=== PATIENT | female | born 1985 | race Caucasian/White ===

== ENCOUNTER 2023-02-09 17:14 | Emergency (ER) | payer OTHER, BC, SELFPAY ==
--- NOTE | ~2023-02-09 | XR_ITS ---
EXAMINATION: XR foot LT min 3V DATE: 02/09/2023 17:33 INDICATION: Left foot run over by a wheelchair. TECHNIQUE: Dorsoplantar, two oblique and lateral views of the left foot were obtained. COMPARISON: None. FINDINGS: Alignment is normal. No fracture. Joint spaces are normal. Small plantar calcaneal spur. Soft tissues are unremarkable. IMPRESSION: 1. No acute osseous abnormality. Reviewed, dictated and finalized at location A.
--- NOTE | 2023-02-09 17:32 | ED.LOWEXIN ---
HPI - Extremity Injury (Lower) General Chief Complaint: Extremity Injury, Lower Stated Complaint: INJURED L FOOT Time Seen by Provider: 02/09/23 17:35 Source: patient and RN notes reviewed Mode of arrival: ambulatory Limitations: no limitations History of Present Illness HPI Narrative: 37-year-old female presents with concern for left foot pain. 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 She denies bruising. She denies open skin. She reports it hurts worse to walk on it. She reports she took ibuprofen. MD complaint: foot injury Related Data Home Medications Medication Instructions Recorded Confirmed albuterol 90 mcg/actuation aerosol 90 mcg inhalation DIRECTED 02/09/23 02/09/23 inhaler benzonatate 100 mg capsule 100 mg PO DIRECTED 02/09/23 02/09/23 doxycycline hyclate 100 mg tablet 100 mg DIRECTED 02/09/23 02/09/23 methylprednisolone 4 mg tablets in 4 mg DIRECTED 02/09/23 02/09/23 a dose pack Allergies Allergy/AdvReac Type Severity Reaction Status Date / Time clarithromycin [From Biaxin] Allergy Mild Hives Verified 02/09/23 17:34 erythromycin base Allergy Mild Hives Verified 02/09/23 17:34 levofloxacin [From Levaquin] Allergy Mild Hives Verified 02/09/23 17:34 Review of Systems Review of Systems: CONSTITUTIONAL: Denies malaise, chills, sweats, or fever. SKIN: Denies rash or itching, open skin, laceration, abrasion, redness, warmth MUSCULOSKELETAL: Reports left foot pain NEUROLOGIC: Denies numbness, weakness All systems reviewed & are unremarkable except as noted in HPI and below PMFSH Comments At time of signature, agree with nursing past medical, surgical, social and family history. There is no relevant family history pertinent to the presenting complaint Exam Narrative: GENERAL: Well-appearing, well-nourished, and in no acute distress. HEAD: Normocephalic, atraumatic. EYES: PERRLA, conjunctivae clear NECK: Supple. CHEST: Speaks in full sentences. No respiratory distress. HEART: Regular rate and rhythm. Normal and equal peripheral pulses. EXTREMITIES: Left foot, digits have grossly normal strength and sensation, grossly normal range of motion. Mild dorsal edema, no ecchymosis. Normal sensation with sensitivity to light touch and pain. General dorsal tenderness. No open wounds, no skin tenting, no devitalized tissue or atrophy, no trophic changes, no obvious deformity, alignment normal, nearby joints and structures intact. Distal pulses palpable and equal bilaterally, skin warm, dry, pink. Capillary refill less than 3 seconds. SKIN: Warm, dry, no rash. NEURO: Alert and oriented x3. PSYCH: Normal mood and affect Course Course Emergency Course: Patient is aware of diagnosis, understands and agrees to treatment plan. Anticipatory guidance given. Patient agrees to follow-up as directed and is aware of reasons to seek care at the emergency department. Portions of this record may have been created with voice recognition software Level of Care: Express Care Visit Vital Signs Vital signs: Reviewed. MDM - Extremity Injury (Lower) MDM Narrative Medical decision making narrative: Patients injury and pain is consistent with musculoskeletal etiology. No signs of neurological or vascular compromise on exam. Compartments and tissues are soft without signs of compartment syndrome. Pain is felt appropriate for further evaluation on an outpatient basis. Imaging Data My impression: Images reviewed, interpreted by radiologist, agree, see report. Radiologist's impression: EXAMINATION: XR foot LT min 3V DATE: 02/09/2023 17:33 INDICATION: Left foot run over by a wheelchair. TECHNIQUE: Dorsoplantar, two oblique and lateral? views of the left foot were obtained. COMPARISON: None. FINDINGS: Alignment is normal. No fracture. Joint spaces are normal. Small plantar calcaneal spur. Soft tissues are
[2023-02-09 17:34] VITALS: BP 124/87; PULSE 103; RESP 16; TEMP 36.6; O2SAT 98
[2023-02-09 17:37] VITALS: BP 124/87; PULSE 103; RESP 16; TEMP 36.6; O2SAT 98
== END 2023-02-09 17:59 | disposition home or self-care (01) ==
PROVIDERS: Emergency Provider Nurse Practitioner
DX: S90.32XA Contusion of left foot, initial encounter (principal); X58.XXXA Exposure to other specified factors, initial encounter; Y99.0 Civilian activity done for income or pay
CPT/HCPCS: 73630; 99213; G0463